=== PATIENT | female | born 1980 | race Caucasian/White ===

== ENCOUNTER 2025-02-17 08:52 | Outpatient (CLI) | payer OTHER, SELFPAY ==
--- NOTE | ~2025-02-17 | MM_ITS ---
EXAMINATION: MM screening yael BI w ayala HISTORY: Screening TECHNIQUE: Craniocaudal and mediolateral oblique 3-D tomosynthesis images were obtained and synthetic 2-D images were generated. CAD analysis was submitted and interpreted. COMPARISON: No prior mammogram is available for comparison at this institution. BREAST PARENCHYMAL COMPOSITION: There are scattered areas of fibroglandular density. FINDINGS: There is no evidence of suspicious mass, calcification, or architectural distortion in either breast to suggest malignancy. There has been no significant interval change. IMPRESSION: 1. No mammographic evidence of malignancy. Recommend routine screening mammography in one year. BI-RADS Category 1: Negative Reviewed, dictated and finalized at location Q. IMPRESSION: 1. No mammographic evidence of malignancy. Recommend routine screening mammogra phy in one year. BI-RADS Category 1: Negative
--- OUTSIDE RECORDS SUMMARY | 2025-02-17 09:23 | XMS_ITS | Clinical Summary ---
Author Organization [facility] Address [address] [place] [address] Phone Care Team Providers Care Printing Mechanist Name Role Phone Js Rojas MD Primary Care Provid er Allergies No known active allergies Medications Levonorgestrel 20 mcg/24 hr (5 years) IUD 1 Device by Intrauterine route one time only. 0 Active ibuprofen (MOTRIN) 200 mg tablet Take 800 mg by mouth every 6 hours as needed for Pain, Mild. Active Active Problems Problem Noted Date Diagnosed Date Morbid obesity with BMI of 45.0-49.9, adult 08/17 Encounters Date Type Department Care Team Description 01/19/2025 External Device Data [facility] ABSTRACTION Provider, Abstract 12/30/2024 External Device Data [facility]STRACTION Provider, Abstract 12/29/2024 External Device Data [facility]STRACTION Provider, Abstract 12/24/2024 Abstract [facility] [address] [place] [address] Jess Browne MD 12/01/2024 External Device Data [facility] ABSTRACTION Provider, Abstract 11/17/2024 External Device Data [facility] ABSTRACTION Provider, Abstract from Last 3 Months Immunizations Immunization Administration Dates Next Due (COMIRNATY)(12 YR UP) COVID- 19 VACCINE, MRNA, SPIKE PROTEIN, LNP, REE(PF) 30 MCG/0.3 ML IM SUSP 04/16/2024,04/10/2023 (PFIZER)(12 YR UP) COVID-19 VACCINE - EMERGENCY USE AUTHORIZATION, MRNA, [id number](PF) 30 MCG/0.3 ML IM SUSP 06/26/2020,06/05/2020 (Pfizer Bivalent)(12 Yr Up) COVID-19 Vaccine - Emergency Use Authorization, MRNA, Lnp-S(Pf) 30 Mcg/0.3 Ml Susp 05/19/2022 INFLUENZA VACCINE QUADRIVALE NT 3 YR UP PF IM 03/21/2016,03/07/2015 INFLUENZA VACCINE QUADRIVALE NT 6 MOS UP PF IM 04/10/2023 INFLUENZA VACCINE TRIVALENT SPLIT VIRUS, (6 MOS UP), 0.5ML (PF), IM 04/16/2024 Influenza Seasonal Unspecifi ed Formulation IM 03/16/2022,04/04/2021,03/16/2020,2018,03/23/2019,03/31/2018,04/27/2017 Family History Medical History Relation Name Comments Healthy Brother Healthy Father Cancer Maternal Grandfather Brain Diabetes Mother Thyroid Disease Mother Breast Cancer Other PGaunt Heart Failure Paternal Grandmother Bronchitis Paternal Uncle Emphysema Paternal Uncle Asthma Neg Hx Colon Cancer Neg Hx Hypertension Neg Hx Lung Cancer Neg Hx Mesothelioma Neg Hx Ovarian Cancer Neg Hx Relation Name Status Comments Brother Alive Father Alive Maternal Grandfather Mother Alive Other PGaunt Paternal Grandmother Paternal Uncle Social History Tobacco Use Types Packs/Day Years Used Date Smoking Tobacco: Never Smokeless Tobacco: Never Tobacco Cessation:Counseling Given: Not Answered Alcohol Use Standard Drinks/Week Comments No 0 (1 standard drink = 0.6 oz pur e alcohol) Comments No Sex and Gender Information Value Date Recorded Sex Assigned at Not on file Legal Sex Female 10:25 AM CDT Gender Identity Not on file Sexual Orientation Not on file Last Filed Vital Signs Vital Sign Reading Time Taken Comments Blood Pressure 118/60 08/01/2021 10:43 AM BUSINESS PROCESS EXPERT Pulse 83 08/01/2021 9:01 AM BUSINESS PROCESS EXPERT Temperature 36.9 C (98.4 F) 04/15/2019 11:01 AM CDT Respiratory Rate 16 07/30/2018 1:27 PM BUSINESS PROCESS EXPERT Oxygen Saturation 97% 08/01/2021 9:01 AM BUSINESS PROCESS EXPERT RA Inhaled Oxygen Concentration - - Weight 139.3 kg (307 lb) 08/01/2021 10:43 AM BUSINESS PROCESS EXPERT Height 167.6 cm (5' 6) 09/04/2024 9:17 AM CDT Body Mass Index 49.55 08/01/2021 10:43 AM BUSINESS PROCESS EXPERT Plan of Treatment Health Maintenance Due Date Last Done Comments DTAP/TDAP/TD VACCINES (1 - Tdap) 2000 HEPATITIS B VACCINES (1 of 3 - 19+ 3-dose series) 2000 HPV VACCINES (1 - 3-dose SCD M series) 2008 Pre-Diabetes and Diabetes Screening 02/06/2022 02/06/2019, 02/06/2019, 01/22/2018, Additional history exists BREAST CANCER SCREENING 03/16/2023 03/16/20, 11/27/2018, 09/18/2016 PAP SMEAR 08/01/2024 08/01/2021, 05/18, 09/11/2016, Additional history exists INFLUENZA VACCINE (#1) 2025 , 04/10/2023, 03/16/2022, Additional history exists CERVICAL CANCER SCREENING 08/01/2026 HPV/Cotest (21-29) 08/01/2026 08/01/2021, 1 08/06/2018, 09/11/2016, Additional history exists HPV/Cotest (30-65) 08/01/2026 08/01/2021, 1 08/06/2018, 09/11/2016, Additional history exists COVID-19 Vaccine Completed 04/16/2024, , 05/19/2022, Additional history exists Procedures Procedure Name Priority Date/Time Associated Diagnosis Comments MAMMO 3D GARRICK SCREEN BILAT W OR WO CAD Routine 03/16/2022 8:23 AM CDT Encounter for screening mammogram for breast cancer CERV/VAG CYTO AGE BASED SCREEN PAP Routine 08/01/2021 11:24 AM BUSINESS PROCESS EXPERT Pap smear for cervical cancer screening Screening for HPV (human papillomavirus) HEMOGLOBIN A1C Routine 02/06/2019 8:04 AM CDT from Last 3 Months or Most Recently Relevant to Health Maintenance Results * MAMMO SCRN BILAT 3D GARRICK W OR WO CAD (03/16/2022 8:23 AM CDT) Anatomical Region Laterality Modality Breast Bilateral Mammography 03/16/2022 8:23 AM CDT Impressions 03/16/2022 3:40 PM CDT IMPRESSION: 1. No concerning findings. OVERALL FINAL ASSESSMENT: BI-RADS CATEGORY 1 - Negative. RECOMMENDATIONS: 1. Recommend annual mammography. Narrative 03/16/2022 3:40 PM CDT BILATERAL SCREENING DIGITAL MAMMOGRAM WITH 3D TOMOSYNTHESIS AND CAD DATE: 03/16/2022 8:23 AM DICTATION LOCATION: [facility] HISTORY: Routine yearly screening exam. TECHNIQUE: Low-dose full-field digital breast tomosynthesis examination was performed of both breasts with 2D and 3D acquisitions. CAD was utilized. COMPARISON: Studies dating back to 09/18/2016. BREAST COMPOSITION: Predominantly fatty replaced. FINDINGS: No concerning dominant masses, suspicious calcifications, parenchymal asymmetries or areas of architectural distortion are identified in either breast. Procedure Note Juan Borja MD - 03/16/2022 BILATERAL SCREENING DIGITAL MAMMOGRAM WITH 3D TOMOSYNTHESIS AND CAD DATE: 03/16/2022 8:23 AM DICTATION LOCATION: [facility] HISTORY: Routine yearly screening exam. TECHNIQUE: Low-dose full-field digital breast tomosynthesis examination was performed of both breasts with 2D and 3D acquisitions. CAD was utilized. COMPARISON: Studies dating back to 09/18/2016. BREAST COMPOSITION: Predominantly fatty replaced. FINDINGS: No concerning dominant masses, suspicious calcifications, parenchymal asymmetries or areas of architectural distortion are identified in either breast. IMPRESSION: 1. No concerning findings. OVERALL FINAL ASSESSMENT: BI-RADS CATEGORY 1 - Negative. RECOMMENDATIONS: 1. Recommend annual mammography. Ashley Sanchez MD MAMMO ORDERABLES Final Result * CERV/VAG CYTO AGE BASED SCREEN PAP (08/01/2021 11:24 AM BUSINESS PROCESS EXPERT) COMMENT (PAP): [facility] Comment: This order for age-based cervical cancer and STI screening follows ACOG guidelines(PB 168, 140, PYJ860). See individual assays for performing site location. CLINICAL INFORMATION [facility] Comment:SCREENING LAST MENSTRUAL PERIOD [facility] Comment:INFORMATION NOT PROV IDED PREV PAP: [facility] Comment:INFORMATION NOT PROV IDED PREV BX: [facility] Comment:INFORMATION NOT PROV IDED SOURCE [facility] Comment:End[employer]ix ADEQUACY: [facility] Comment: Satisfactory for evaluation. Endocervical/transformation zone component present. Age and/or menstrual status not provided PAP INTERP [facility] Comment:Negative for intraep ithelial lesion or malignancy. COMMENT (PAP TEST) [facility] Comment: This Pap test has been evaluated with computer assisted technology. DECORATING SUPERVISOR: [facility] Comment: ADEOLA DEVINE(ASCP) CT screening location: [place] [address] [place] [address] EXPLANATORY NOTE [facility] Comment: EXPLANATORY NOTE: The Pap is a screening test for cervical cancer. It is not a diagnostic test and is subject to false negative and false positive results. It is most reliable when a satisfactory sample, regularly obtained, is submitted with relevant clinical findings and history, and when the Pap result is evaluated along with historic and current clinical information. HPV E6/E7 Not Detected Not Detected [facility] Comment: Methodology: [employer] Detective-Mediated Amplification This assay detects E6/E7 viral messenger RNA (mRNA) from 14 high-risk HPV types (16,18,31,33,35,39,45,51,52,56,58,59,66,68). The analytical performance characteristics of this assay have been determined by [facility]. The modifications have not been cleared or approved by the FDA. This assay has been validated pursuant to the CLIA regulations and is used for clinical purposes. For additional information, please refer to http://education.[employer].SomaLogic/faq/SSB908z5 (This link if provided for information/ educational purposes only.) Test Performed at: [facility] [address] [place] [address] Easton Diallo D.O., MPH SL Genital SWAB OF ENDOCERVIX / Unknown 08/01/2021 11:24 AM BUSINESS PROCESS EXPERT 08/01/2021 7:37 PM BUSINESS PROCESS EXPERT Ashley Sanchez MD PATHOLOGY/CYTOLOGY ORDERABLES Fi nal Result [facility] [address] [place] [address] * HEMOGLOBIN A1C (02/06/2019 8:04 AM CDT) HEMOGLOBIN A1C 5.2 <5.7 % 02/06/2019 5:46 PM CDT [facility] EST. AVG GLUCOSE, A1C 103 mg/dL 02/06/2019 5:46 PM CDT [facility] Blood Venipuncture / Unknown 02/06/2019 8:04 AM CDT 02/06/2019 3:55 PM CDT Narrative [facility] - 02/06/2019 5:46 PM CDT HGB A1C INTERPRETATION NORMAL: <5.7% PRE-DIABETES: 5.7 - 6.4% DIABETES: 6.5% OR GREATER Ricky Giron DO CHEMISTRY ORDERABLES Final Res ult [facility] [employer] [facility] CLIA# [id number] [address] [place] [place] [address] from Last 3 Months or Most Recently Relevant to Health Maintenance Insurance RX [facility] [employer] Care Teams Printing Mechanist Relationship Specialty Start Date End Date Js Rojas MD [address] [place] [id number] PCP - General Internal Medicine 09/27/15
== END 2025-02-17 08:53 | disposition home or self-care (01) ==
LOC: ANHFOHIMG 08:55
PROVIDERS: Visit Provider Nurse Practitioner Obstetrics & Gynecology
DX: Z12.31 Encounter for screening mammogram for malignant neoplasm of breast (principal)
CPT/HCPCS: 77063; 77067